=== PATIENT | female | born 1955 | race Caucasian/White ===

== ENCOUNTER 2017-08-02 14:59 | Emergency (ER) | payer MEDICARE, MEDICAID ==
[~2017-08-02] VITALS: Ht 160 cm; Wt 88.0 kg
[~2017-08-02 14:59] MED LIST: BENZ100 PO; LORA-392 PO; PARO40TA PO
[2017-08-02 15:01] VITALS: BP 171/77; PULSE 113; RESP 18; TEMP 97.5; O2SAT 97
[2017-08-02] MEDS ORDERED: RESP: ALBUTEROL 2.5 MG/IPRATROPIUM 0.5 MG NEB (SCH) INH ONE (15:15)
--- NOTE | 2017-08-02 15:17 | PD ---
HPI Chief Complaint: Cold / Flu Symptoms Time Seen by Provider: 15:04 Travel History International Travel<30 days: No Contact w/Intl Traveler<30days: No Traveled to known affect area: No History of Present Illness HPI 62-year-old female presents emergency department for evaluation of a cough, congestion and 'feeling sweaty' for approximately 4 days. Patient states that she has had chills. Says she "never has fever". She denies any chest pain, shortness of breath, nausea, vomiting or diarrhea. Says she has had clear rhinorrhea and productive yellow sputum when she coughs. Says she did have the influenza vaccine this year. She denies history of tobacco use. Denies chronic medical issues except for hyperlipidemia. She denies any chemical or other exposures. PFSH Past Medical History Hx Anticoagulant Therapy: No Heart Rhythm Problems: No Cardiac Catheterization: No Cardiovascular Problems: Yes (CHOL) High Cholesterol: Yes Chest Pain: Yes (ONCE, SAW AWAITING APPT WITH [facility]) Congestive Heart Failure: No Diabetes: No Diminished Hearing: No Hypertension: No Psychiatric: Yes (HX OF OCD) Myocardial Infarction: No ?: Not Tubal Ligation: Yes Past Surgical History Appendectomy: Yes Section: Yes Coronary Artery Bypass Graft: No Social History Alcohol Use: No Tobacco Use: No Substance Use: No Allergies-Medications (Allergen,Severity, Reaction): Coded Allergies: diphenhydramine (Verified Adverse Reaction, Intermediate, 08/02/17) Reported Meds & Prescriptions Reported Meds & Active Scripts Active Ventolin Hfa 18 GM Inh (Albuterol Sulfate) 90 Mcg/Act Aer 2 Puff INH Q4-6H PRN Medrol Dosepak (Methylprednisolone) 4 Mg Dspk 4 Mg PO DIRECTED Per Pharmacist direction Reported Paxil (Paroxetine HCl) 30 Mg Tab 30 Mg PO DAILY Review of Systems Except as stated in HPI: all other systems reviewed are Neg Physical Exam Narrative GENERAL: Well-nourished, well-developed patient. SKIN: Focused skin assessment warm/dry. HEAD: Normocephalic. Clear rhinorrhea EYES: No scleral icterus. No injection or drainage. NECK: Supple, trachea midline. No JVD or lymphadenopathy. CARDIOVASCULAR: Regular rate and rhythm without murmurs, gallops, or rubs. RESPIRATORY: Breath sounds equal bilaterally. No accessory muscle use. Faint rhonchi bilateral lower lobes with occasional wheeze GASTROINTESTINAL: Abdomen soft, non-tender, nondistended. No CVA tenderness MUSCULOSKELETAL: No cyanosis, or edema. Homans sign negative bilaterally BACK: Nontender without obvious deformity. No CVA tenderness. Data Data Last Documented VS Vital Signs Date Time Temp Pulse Resp B/P (MAP) Pulse Ox O2 Delivery O2 Flow Rate FiO2 08/02/17 15:01 97.5 113 18 171/77 (108) 97 Orders Orders Chest, Single Ap (08/02/17 ) Albuterol-Ipratropium Neb (Duoneb Neb) (08/02/17 15:15) Ed Discharge Order (08/02/17 16:38) [facility] Medical Decision Making Medical Screen Exam Complete: Yes Emergency Medical Condition: Yes Differential Diagnosis Pneumonia, bronchitis, upper respiratory infection, influenza Narrative Course 62-year-old female presents emergency room for evaluation of cough and congestion that started approximate 4 days ago. Vital signs are stable. X-ray ordered as patient does have faint rhonchi (?) bilateral lower lobes. DuoNeb 1 ordered as patient does have a significant cough and emergency department today. After the DuoNeb, patient says that she feels as if she can take a deep breath now. Patient does feel better and believes that her cough is improved. X-ray without acute process. Patient be discharged with Medrol Dosepak and albuterol inhaler. She has follow-up with her primary care physician tomorrow. Advised that she keep this appointment. Return to emergency room for worsening or persistent symptoms. Diagnosis Primary Impression: Bronchitis Referrals: Primary Care Physician Additional Instructions: Use inhaler as prescribed. Follow up with your primary care physician tomorrow as discussed. Scripts Albuterol 18 GM Inh (Ventolin Hfa 18 GM Inh) 90 Mcg/Act Aer 2 PUFF INH Q4-6H Y for SHORTNESS OF BREATH, #1 INHALER 0 Refills Prov: Jasmin Lucero MD 08/02/17 Methylprednisolone Dosepak (Medrol Dosepak) 4 Mg Dspk 4 MG PO DIRECTED, #1 DSPK 0 Refills Per Pharmacist direction Prov: Jasmin Lucero MD 08/02/17 Disposition: 01 DISCHARGE HOME Condition: Stable [place] Aug 02, 2017 15:17
[2017-08-02] MEDS ORDERED: PAXI30TA7 PO (15:22)
--- NOTE | 2017-08-02 16:34 | RADRPT ---
EXAM DATE/TIME: 08/02/2017 15:19 [place] COMPARISON: No previous studies available for comparison. INDICATIONS : Cough. MEDICAL HISTORY : None. SURGICAL HISTORY : None. ENCOUNTER: Initial ACUITY: 4 - 6 days PAIN SCORE: 0/10 LOCATION: Bilateral chest FINDINGS: A single view of the chest demonstrates the lungs to be symmetrically aerated without evidence of mas s, infiltrate or effusion. The cardiomediastinal contours are unremarkable. Osseous structures are intact. CONCLUSION: No acute disease. Manpreet Swann MD FACR on August 02, 2017 at 16:31 Board Certified Radiologist. This report was verified electronically.
[2017-08-02] MEDS ORDERED: MEDR4PAK PO (16:38)
[2017-08-02] MEDS ORDERED: VENTAER INH (16:38)
== END 2017-08-02 16:46 | disposition home or self-care (01) ==
LOC: PHEFT 14:59
DX: J40 Bronchitis, not specified as acute or chronic (principal); E78.00 Pure hypercholesterolemia, unspecified; F42.9 Obsessive-compulsive disorder, unspecified; Z79.899 Other long term (current) drug therapy; Z88.8 Allergy status to other drugs, medicaments and biological substances
CPT/HCPCS: 71045; 94664; 99283